=== PATIENT | male | born 1980 | race African-American/Black ===

== ENCOUNTER 2019-06-02 11:46 | Emergency (ER) | payer OTHER ==
[~2019-06-02] VITALS: Ht 170.2 cm; Wt 68.5 kg
[2019-06-02] MEDS ORDERED: MOBIC7.5 MG PO (14:03)
[2019-06-02] MEDS ORDERED: CYCLOBENZAPRINE5 MG PO (14:03)
[2019-06-02 14:05] VITALS: BP 118/74
== END 2019-06-02 14:05 | disposition home or self-care (01) ==
LOC: ER 11:46
DX: M54.2 Cervicalgia (principal); G89.29 Other chronic pain; V89.2XXA Person injured in unspecified motor-vehicle accident, traffic, initial encounter; Y93.89 Activity, other specified; Y92.481 Parking lot as the place of occurrence of the external cause